=== PATIENT | female | born 1980 | race Caucasian/White ===

== ENCOUNTER 2018-07-06 04:03 | Emergency (ER) | payer BC ==
[2018-07-06] MEDS ORDERED: Ibuprofen 800 MG TAB ONE (04:51)
== END 2018-07-06 04:04 | disposition home or self-care (01) ==
LOC: ERS 04:03
DX: H66.91 Otitis media, unspecified, right ear (principal); G43.909 Migraine, unspecified, not intractable, without status migrainosus; Z79.899 Other long term (current) drug therapy
CPT/HCPCS: 99282

== ENCOUNTER 2019-07-12 13:12 | Outpatient (CLI) | payer BC, OTHER ==
--- NOTE | 2019-07-12 13:38 | RAD ---
EXAM: 3 views of the thoracic spine HISTORY: Thoracic spine pain COMPARISON: None FINDINGS: 3 views of the thoracic spine shows normal height and alignment of the vertebral bodies and intervertebral discs without fracture or subluxation. No significant degenerative changes are seen. IMPRESSION: No significant thoracic spine abnormality.
--- NOTE | 2019-07-12 13:40 | RAD ---
EXAM: XR Lumbar Spine Min 4 View PROVIDED CLINICAL HISTORY: Low back pain with pain extending down bilateral lower extremities which is intermittent. COMPARISON: 01/26/2013 FINDINGS: There is suggestion of trace anterolisthesis of L5 on S1. The vertebral body heights and intervertebr al disc spaces are within normal limits. No fracture is seen. Mild facet degenerative changes are seen at the lumbosacral junction. No other interval change from prior study. IMPRESSION: Suggestion of trace anterolisthesis at the lumbosacral junction related to facet degenerative changes .
== END 2019-07-12 13:13 | disposition home or self-care (01) ==
LOC: BICRAD 13:12
PROVIDERS: ATTEND Internal Medicine Rheumatology
DX: M54.5 Low back pain (principal); M54.6 Pain in thoracic spine; M47.816 Spondylosis without myelopathy or radiculopathy, lumbar region
CPT/HCPCS: 72072; 72110

== ENCOUNTER 2020-07-12 02:49 | Emergency (ER) | payer BC, OTHER ==
[2020-07-12 04:32] LABS: #Lymphocytes 0.5 thou/uL (1.20-3.40); #Monocytes 0.3 thou/uL (0.11-0.59); #Neutrophils 3.6 thou/uL (1.40-6.50); %Basophils 0.4 % (0.0-1.0); %Lymphocytes 10.5 % (21.0-51.0); %Monocytes 5.8 % (0.0-10.0); %Neutrophils 83.3 % (42.0-75.0); Hemoglobin 12.5 g/dL (12.0-16.0); Mean Corpuscular HGB CONC 32.5 g/dL (32.0-36.0); Mean Corpuscular Hemoglobin 27.3 pg (27.0-31.0); Mean Platelet Volume 9.9 fL (7.4-10.4); Platelet Count 126 thou/uL (130-400); RBC Distribution Width 12.6 % (11.5-14.5); White Blood Cell (WBC) Count 4.3 thou/uL (4.8-10.8)
[2020-07-12 04:39] LABS: BHCG - Serum Negative (NEGATIVE); Pregs Control Background? CLEAR/WHITE (CLR/WHITE); Pregs Control Bar Appear? YES (CONTROL BAR)
[2020-07-12 04:54] LABS: ALT (SGPT) 15 U/L (8-55); AST (SGOT) 24 U/L (5-34); Albumin 3.6 g/dL (3.5-5.0); Alkaline Phosphatase 60 U/L (40-110); Anion Gap 15 mmol/L (10-20); BUN (Urea Nitrogen) 12 mg/dL (7.0-18.7); Bilirubin, Total 0.3 mg/dL (0.2-1.2); Calc. Creatinine Clearance 0 mL/min (70-130); Calcium 7.9 mg/dL (7.8-10.44); Carbon Dioxide 21 mmol/L (22-29); Chloride 103 mmol/L (98-107); Globulin 2.9 g/dL (2.4-3.5); Glucose 118 mg/dL (70-105); Potassium 3.7 mmol/L (3.5-5.1); Protein, Total 6.5 g/dL (6.0-8.3); Sodium 135 mmol/L (136-145)
--- NOTE | 2020-07-12 08:11 | CT ---
PRELIMINARY REPORT/[facility]/EMERGENCY AFTER HOURS PROCEDURE EXAM: CT Head and Cervical Spine Without IV contrast. CLINICAL HISTORY: Patient brought to the ER by EMS after syncopal episode. Patient reports that she was sitting on the toilet when she became very lightheaded. She passed out and fell forward into the wall in front of her. HIT HEAD TECHNIQUE: Axial computed tomography images were acquired of the head and the cervical spine without intravenous contrast. Sagittal and coronal reformatted images were obtained of the cervical spine. COMPARISON: None provided. FINDINGS: BRAIN: No acute intraparenchymal hemorrhage. No mass lesion. No CT evidence for acute territorial infarct. N o midline shift or extra-axial collection. VENTRICLES No hydrocephalus. ORBITS The orbits are unremarkable. SINUSES AND MASTOIDS The paranasal sinuses and mastoid air cells are clear. SOFT TISSUES No significant facial or scalp soft tissue swelling evident. No radiopaque foreign body is seen. BONES No acute osseous pathology evident. No acute fracture is evident on images of the head or cervical spine. DISKS/DEGENERATIVE CHANGES No significant disc or facet degeneration. Posterior cervical spine vertebral body alignment is within normal limits. IMPRESSION: 1. No acute intracranial findings. No acute intracranial injury evident. 2. No cervical spine fracture evident. ELECTRONICALLY SIGNED BY: Madeline Finnegan DO Jul 12, 2020 5:04:43 AM COMMUNICATION ANALYST This report is intended for review by the ordering physician only, in accordance of law. If you recei ve this report in error, please call [facility] at [phone]. FINAL REPORT Exam: Head CT without contrast HISTORY: Trauma. Fall. Pain. COMPARISON: 01/06/2017 FINDINGS: Hemorrhage: No intraparenchymal hemorrhage or extra-axial hematoma. Brain parenchyma: Cortical garrett-white matter differentiation is preserved. No mass effect or midline shift. Basilar cisterns are patent. Ventricular system: Ventricles and sulci are patent and symmetric. Calvarium: Intact. Sinuses and mastoid air cells: Minimal opacification of the left mastoid air cells. IMPRESSION: 1. This report is in agreement with initial report by [facility]. 2. No acute intracranial process. Transcribed Date/Time: 07/12/2020 8:28 AM
--- NOTE | 2020-07-12 08:22 | CT ---
PRELIMINARY REPORT/[facility]/EMERGENCY AFTER HOURS PROCEDURE EXAM: CTA Chest with Intravenous Contrast CLINICAL HISTORY: Patient reports that she was diagnosed with Covid 4 days ago. She has had 6 days of cough, body aches , fever, and profound diarrhea. She denies nausea and vomiting. She reports shortness of breath when she tries to exert herself. TECHNIQUE: Axial CTA images of the chest with intravenous contrast. Three-dimensional MIP/volume rendered reform ations were performed. CONTRAST: With; ISOVUE 370;60mL COMPARISON: None provided. FINDINGS: PULMONARY ARTERIES There is no intraluminal filling defect suspicious for PE. AORTA No thoracic aortic aneurysm or dissection. LUNGS There are mild scattered bilateral infiltrates in both lungs. This is consistent with viral/Covid pn eumonia. No effusion or pneumothorax.. PLEURAL SPACES No pleural effusion. No pneumothorax. HEART AND MEDIASTINUM No cardiomegaly. No significant pericardial effusion. LYMPH NODES No lymphadenopathy. BONES No focal osseous abnormality or acute fracture. CHEST WALL AND UPPER ABDOMEN Images through the upper abdomen are unremarkable. The chest wall is unremarkable. IMPRESSION: Mild scattered infiltrates throughout both lungs consistent with viral/Covid pneumonia. No effusion or pneumothorax. There is no evidence of pulmonary arterial emboli.. ELECTRONICALLY SIGNED BY: Madeline Finnegan DO Jul 12, 2020 5:06:57 AM PRESCRIPTION CLERK This report is intended for review by the ordering physician only, in accordance of law. If you recei ve this report in error, please call [facility] at [phone]. FINAL REPORT EMERGENCY AFTER HOURS CTA CHEST: I agree with the preliminary report report provided by [facility]. No central or segmental pulm onary embolus is evident. There are scattered areas of peripheral airspace opacities in a pattern seen with COVID pneumonia. There is prominent fatty infiltration of the liver. There is a small hiata l hernia. Transcribed Date/Time: 07/12/2020 8:32 AM
--- NOTE | 2020-07-12 08:25 | CT ---
PRELIMINARY REPORT/[facility]/EMERGENCY AFTER HOURS PROCEDURE EXAM: CT Head and Cervical Spine Without IV contrast. CLINICAL HISTORY: Patient brought to the ER by EMS after syncopal episode. Patient reports that she was sitting on the toilet when she became very lightheaded. She passed out and fell forward into the wall in front of her. HIT HEAD TECHNIQUE: Axial computed tomography images were acquired of the head and the cervical spine without intravenous contrast. Sagittal and coronal reformatted images were obtained of the cervical spine. COMPARISON: None provided. FINDINGS: BRAIN: No acute intraparenchymal hemorrhage. No mass lesion. No CT evidence for acute territorial infarct. N o midline shift or extra-axial collection. VENTRICLES No hydrocephalus. ORBITS The orbits are unremarkable. SINUSES AND MASTOIDS The paranasal sinuses and mastoid air cells are clear. SOFT TISSUES No significant facial or scalp soft tissue swelling evident. No radiopaque foreign body is seen. BONES No acute osseous pathology evident. No acute fracture is evident on images of the head or cervical spine. DISKS/DEGENERATIVE CHANGES No significant disc or facet degeneration. Posterior cervical spine vertebral body alignment is within normal limits. IMPRESSION: 1. No acute intracranial findings. No acute intracranial injury evident. 2. No cervical spine fracture evident. ELECTRONICALLY SIGNED BY: Madeline Finnegan DO Jul 12, 2020 5:04:43 AM DIESEL [employer]IC [employer]CTION This report is intended for review by the ordering physician only, in accordance of law. If you recei ve this report in error, please call [facility] at [phone]. FINAL REPORT Exam: CT cervical spine without contrast HISTORY: Trauma. Pain. COMPARISON: None FINDINGS: No craniocervical dissociation. Appropriate alignment of the lateral masses of C1 and C2. Intact odon toid process Appropriate alignment of the facets. Soft tissue neck structures: No mass, lymphadenopathy or hematoma. No prevertebral soft tissue swelli ng. Upper mediastinum and lung apices: Unremarkable Central spinal canal: Neural foramina and central spinal canal are patent. Evaluation is limited by t echnique Vertebral bodies: Cervical spine vertebral body height is maintained. No fracture. IMPRESSION: 1. This report is in agreement with initial report by [facility]. 2. No cervical spine fracture. Transcribed Date/Time: 07/12/2020 8:29 AM
--- NOTE | 2020-07-12 09:00 | RAD ---
Chest AP view INDICATION: History of syncopal episode COMPARISON: Prior exam dated 02/17/2012 FINDINGS: Lungs: There are patchy interstitial and groundglass opacities within both lower lobes. Cardiac silhouette: The cardiomediastinal silhouette appears within normal limits. Pulmonary vasculature: Normal Pleural spaces: No pleural effusion or pneumothorax is demonstrated. Upper abdomen: No abnormality seen. Osseous structures: No acute osseous abnormality. Additional findings: None. IMPRESSION: Patchy areas of interstitial and groundglass opacities within the peripheral aspects of both lower lo bes suspicious for pneumonia.
[2020-07-12] MEDS ORDERED: Iopamidol 370 76% 100 ML VIAL ONE (09:31)
== END 2020-07-12 06:12 | disposition home or self-care (01) ==
LOC: ERS 02:49
DX: U07.1 COVID-19 (principal); S09.90XA Unspecified injury of head, initial encounter; R55 Syncope and collapse; W18.12XA Fall from or off toilet with subsequent striking against object, initial encounter; G43.909 Migraine, unspecified, not intractable, without status migrainosus
CPT/HCPCS: 36415; 70450; 71045; 71275; 72125; 80053; 84703; 85025; 93005; Q9967